=== PATIENT | male | born 1985 | race Caucasian/White ===

== ENCOUNTER 2021-12-10 13:48 | Inpatient (IN) | payer OTHER ==
[~2021-12-10] VITALS: Ht 180.3 cm; Wt 107.3 kg
[~2021-12-10 13:48] MED LIST: methylPREDNISolone 4 MG TABLET. PO SCH
[2021-12-10] MEDS ORDERED: MORPHINE SULFATE 10 MG/ML VIAL. IVP ONE (14:15)
[2021-12-10 14:23] LABS: BASO # 0.1 x10^3/uL (0.0-0.2); BASO % 1 % (0-3); EOS # 0.3 x10^3/uL (0.0-0.7); EOS % 4 % (0-3); HEMATOCRIT 42.4 % (39.0-53.0); HEMOGLOBIN 14.4 g/dL (13.0-17.5); LYMPH # 2.5 x10^3/uL (1.0-4.8); LYMPH % 34 % (24-48); MEAN CORPUSCULAR HEMOGLOBIN 32 pg (25-35); MEAN CORPUSCULAR HGB CONC 34 g/dL (31-37); MEAN CORPUSCULAR VOLUME 93 fL (79-100); MONO # 0.5 x10^3/uL (0.0-1.1); MONO % 7 % (0-9); NEUT # 3.9 x10^3/uL (1.8-7.7); NEUT % 54 % (31-73); PLATELET COUNT 212 x10^3/uL (140-400); RED BLOOD COUNT 4.58 x10^6/uL (4.30-5.70); RED CELL DISTRIBUTION WIDTH 12.8 % (11.5-14.5); WHITE BLOOD COUNT 7.3 x10^3/uL (4.0-11.0)
[2021-12-10] MEDS ORDERED: methylPREDNISolone SOD SUCC PF 125 MG/2 ML VIAL. IV ONE (14:30)
[2021-12-10] MEDS ORDERED: ORPHENADRINE CITRATE 60 MG/2 ML VIAL. IM ONE (14:30)
[2021-12-10] MEDS ORDERED: KETOROLAC 30 MG/ML VIAL. IVP ONE (14:30)
[2021-12-10] MEDS ORDERED: LIDOCAINE (700MG/PATCH) PATCH. TD ONE (14:30)
[2021-12-10 14:31] LABS: CALCIUM 8.4 mg/dL (8.5-10.1); CREATININE 0.9 mg/dL (0.7-1.3); POTASSIUM 4.2 mmol/L (3.5-5.1)
[2021-12-10 14:37] LABS: TOTAL BILIRUBIN 0.5 mg/dL (0.2-1.0); TOTAL PROTEIN 7.9 g/dL (6.4-8.2)
--- NOTE | 2021-12-10 14:40 | PHYS DOC ---
Past Medical History Past Surgical History: Other Additional Past Surgical Histo: PLATE IN LEFT HAND General Adult EDM: Chief Complaint: PAIN CONTROL HPI: HPI: Patient is a 36 year old male who presents with back for lower back pain after he was seen at [facility] yesterday. He has had lower back pain that radiates sharp shooting down the right leg and into the hip. He denies loss of bowel bladder, numbness or tingling, focal weakness, urinary retention, abdominal pain, nausea, vomiting, chest pain, fever, urinary symptoms, shortness of breath. He states that he is injured his back before and it feels like a spasm but usually he just takes ibuprofen and it gets better. He states that nothing is making it better. Yesterday when he was seen he was offered admission but he decided that since he was not and get an MRI that day and there was an anesthesiologist there to do any kind of a nerve block that he " was just can go home and be miserable." He was given prescriptions for prednisone, Flexeril, hydrocodone but states that he did not get any of them filled because " it would be worthless." Rating his pain a 10 out of 10. Review of Systems: Review of Systems: Constitutional: Denies fever or chills. [] Eyes: Denies change in visual acuity. [] HENT: Denies nasal congestion or sore throat. [] Respiratory: Denies cough or shortness of breath. [] Cardiovascular: Denies chest pain or edema. [] GI: Denies abdominal pain, nausea, vomiting, bloody stools or diarrhea. [] : Denies dysuria. [] Musculoskeletal: +lower back pain or denies joint pain. + Sharp shooting pain going down the right leg and into the hip [] Integument: Denies rash. [] Neurologic: Denies headache, focal weakness or + numbness tingling down the right thigh and leg sensory changes. [] Endocrine: Denies polyuria or polydipsia. [] Lymphatic: Denies swollen glands. [] Psychiatric: Denies depression or anxiety. [] Heart Score: C/O Chest Pain: No Current Medications: Current Medications Medications (Trade) Dose Ordered Sig/Gomez Start Time Stop Time Status Last Admin Dose Admin Ketorolac Tromethamine (Toradol 30mg Vial) 30 mg 1X ONCE 12/10/21 14:30 2/27/22 14:31 Lidocaine (Lidoderm) 1 patch 1X ONCE 12/10/21 14:30 12/10/21 14:31 UNV Methylprednisolone Sodium Succinate (SOLU-Medrol 125MG VIAL) 125 mg 1X ONCE 12/10/21 14:30 12/10/21 14:31 Morphine Sulfate (Morphine Sulfate) 5 mg 1X ONCE 12/10/21 14:15 12/10/21 14:16 DC Orphenadrine Citrate (Norflex) 60 mg 1X ONCE 12/10/21 14:30 12/10/21 14:31 UNV Allergies: Allergies: Allergies Coded Allergies Type Severity Reaction Last Updated Verified No Known Drug Allergies 12/10/21 No Physical Exam: PE: Constitutional: Well developed, well nourished, no acute distress, non-toxic appearance. [] HENT: Normocephalic, atraumatic, bilateral external ears normal, oropharynx moist, no oral exudates, nose normal. [] Eyes: PERRLA, EOMI, conjunctiva normal, no discharge. [] Neck: Normal range of motion, no tenderness, supple, no stridor. [] Cardiovascular:Heart rate regular rhythm, no murmur [] Lungs & Thorax: Bilateral breath sounds clear to auscultation [] Abdomen: Bowel sounds normal, soft, no tenderness, no masses, no pulsatile masses. [] Skin: Warm, dry, no erythema, no rash. [] Back: No tenderness, no CVA tenderness. [] Extremities: No tenderness, no cyanosis, no clubbing, right leg limited ROM but intact, no edema. [] Neurologic: Alert and oriented X 3, normal motor function, normal sensory function, no focal deficits noted. Some numbness to the thigh and the right [] Psychologic: Affect normal, judgement normal, mood normal. [] Current Patient Data: Vital Signs: Vital Signs Date Time Temp Pulse Resp B/P (MAP) Pulse Ox O2 Delivery O2 Flow Rate FiO2 12/10/21 13:59 97.2 84 16 139/94 (109) 98 Room Air 97.2 EKG: EKG: [] Radiology/Procedures: Radiology/Procedures: [] Course & Med Decision Making: Course & Med Decision Making Pertinent Labs and Imaging studies reviewed. (See chart for details) See HPI. Alert and oriented x4. Ambulatory with an unsteady gait and using a crutch to help walk due to the pain. He does not have any focal weakness in the leg is just painful to move the leg because of pain that occurs in his lower back and down into the leg itself. There is no extremity edema. No tenderness to the leg. Some tenderness to the right lower back with palpation. No saddle anesthesia. No loss of bowel bladder. He is urinating appropriately. Yesterday the [facility] report states that there is no blood in his urine. His CT lumbar and abdomen pelvis from yesterday at [facility] stated no acute findings. Here in the ED patient is getting morphine 5 mg IV, lidocaine patch, Norflex IM, Toradol IV, Solu-Medrol 125 IV. Patient to be admitted to the hospitalist. I did speak to Minerva nurse practitioner for Dr. Lopez who states to admit the patient and they can do a MRI in the morning. [] Keya Disclaimer: Keya Disclaimer: This electronic medical record was generated, in whole or in part, using a voice recognition dictation system. Departure Departure Impression: Primary Impression: Intractable low back pain Disposition: ADMITTED INPATIENT Admitting Physician: MAGDIEL Condition: STABLE MAURICIO URENA APRN Dec 10, 2021 14:40
[2021-12-10] MEDS ORDERED: MORPHINE SULFATE 4 MG/ML INJ. IVP PRN (14:45)
[2021-12-10] MEDS ORDERED: PROCHLORPERAZINE 10 MG/2 ML VIAL. IVP PRN (15:00)
[2021-12-10] MEDS ORDERED: ZOLPIDEM 5 MG TABLET. PO PRN (15:00)
[2021-12-10] MEDS ORDERED: MORPHINE SULFATE 2 MG/ML INJ. IV PRN ×2 (15:00)
[2021-12-10] MEDS ORDERED: ONDANSETRON PF 4 MG/2 ML VIAL. IVP PRN (15:00)
[2021-12-10] MEDS ORDERED: CALCIUM CARBONATE 500 MG TAB.CHEW PO PRN (15:00)
[2021-12-10] MEDS ORDERED: ELECTROLYTE (NON-ICU) PROTOCOL. MC PRN (15:00)
[2021-12-10] MEDS ORDERED: ACETAMINOPHEN 325 MG TABLET. PO PRN (15:00)
[2021-12-10 17:43] VITALS: BP 118/70
--- NOTE | 2021-12-10 18:51 | PDOC1 ---
History and Physical Date of Service: DOS: DATE: 12/10/21 TIME: 18:51 Chief Complaint: Chief Complain: back pain History of Present Illness: HPI: Patient is a 36-year-old male presented the emergency room today for ongoing lower back pain. Patient was seen at [facility] yesterday for the same complaint. Patient says that his right lower back pain that shooting down the back of his right leg. Denies any sort of other symptoms including pain to the left leg; no bowel or bladder incontinence. Overall really denying any other symptoms. Has had back injury in the past but he really would not specify to me. At [facility] yesterday was offered admission but was told it would be few days for get MRI and this upset him and he left. He was given prescriptions for prednisone Flexeril and hydrocodone but never filled them because he said they would not help anyways. Decided to present here today then. In emergency room lab work all normal. CT scan [place] reviewed which overall normal. Patient still quite a bit of pain admit. Neurosurgery discussed with the ER team recommending MRI in the morning. Past Medical/Surgical History: PMH/PSH: Patient denies any past medical history Allergies: Allergies: Coded Allergies: No Known Drug Allergies (Unverified , 12/10/21) Family History: Family History: None none Social History: Social History: social alcohol use; denies tobacco drug use Current Medications: Current Medications Current Medications Morphine Sulfate (Morphine Sulfate) 5 mg 1X ONCE IVP Last administered on 12/10/21at 14:36; Start 12/10/21 at 14:15; Stop 12/10/21 at 14:16; Status DC Methylprednisolone Sodium Succinate (SOLU-Medrol 125MG VIAL) 125 mg 1X ONCE IV Last administered on 12/10/21at 14:34; Start 12/10/21 at 14:30; Stop 12/10/21 at 14:31; Status DC Ketorolac Tromethamine (Toradol 30mg Vial) 30 mg 1X ONCE IVP Last administered on 12/10/21at 14:37; Start 12/10/21 at 14:30; Stop 12/10/21 at 14:31; Status DC Orphenadrine Citrate (Norflex) 60 mg 1X ONCE IM Last administered on 12/10/21at 14:32; Start 12/10/21 at 14:30; Stop 12/10/21 at 14:31; Status DC Lidocaine (Lidoderm) 1 patch 1X ONCE TD Last administered on 12/10/21at 14:40; Start 12/10/21 at 14:30; Stop 12/10/21 at 14:31; Status DC Morphine Sulfate (Morphine Sulfate) 4 mg PRN Q2HR PRN IVP PAIN; Start 12/10/21 at 14:45; Stop 12/11/21 at 14:44 Ondansetron HCl (Zofran) 4 mg PRN Q6HRS PRN IVP NAUSEA/VOMITING; Start 12/10/21 at 15:00 Prochlorperazine Edisylate (Compazine) 10 mg PRN Q6HRS PRN IVP NAUSEA/VOMITING 2ND CHOICE; Start 12/10/21 at 15:00 Calcium Carbonate/ Glycine (Tums) 500 mg PRN Q3HRS PRN PO UPSET STOMACH; Start 12/10/21 at 15:00 Zolpidem Tartrate (Ambien) 5 mg PRN QHS PRN PO INSOMNIA, MAY REPEAT IN 1HR; Start 12/10/21 at 15:00 Info (Non-Icu Electrolyte Protocol) 1 ea PRN DAILY PRN MC SEE COMMENTS; Start 12/10/21 at 15:00 Morphine Sulfate (Morphine Sulfate) 1 mg PRN Q1HR PRN IV PAIN; Start 12/10/21 at 15:00 Morphine Sulfate (Morphine Sulfate) 2 mg PRN Q1HR PRN IV PAIN; Start 12/10/21 at 15:00 Acetaminophen (Tylenol) 650 mg PRN Q6HRS PRN PO Headaches, Temp > 101.5F; Start 12/10/21 at 15:00 Senna/Docusate Sodium (Senna Plus) 1 tab BID PO ; Start 12/10/21 at 21:00 Heparin Sodium (Porcine) (Heparin Sodium) 5,000 unit Q8HRS SQ ; Start 12/10/21 at 22:00 Active Scripts Active Reported No Known Medications Prior To Admisstion (Info) Each 1 Each MC 1X ROS: Review of Systems Review of System Unless noted in HPI 14 point review of systems was negative Physical Exam: Vital Signs: Vital Signs Date Time Temp Pulse Resp B/P (MAP) Pulse Ox O2 Delivery O2 Flow Rate FiO2 12/10/21 17:43 98.2 57 18 118/70 (86) 98 Room Air 98.2 Physcial Exam: GEN: Distress due to pain alert and oriented HEENT: Normal cephalic, atraumatic, external auditory canals are patent EYES: Extraocular muscles are intact, pupil are equally round and reactive to light and accommodation MUSCULOSKELETAL: Well developed , well nourished, good range of motion ENDOCRINE: No thyromegaly was palpated LYMPHATICS: No cervical chain or axillary nodes were noted HEMATOPOIETIC: No bruising NECK: Supple, no JVD, no thyromegaly was noted LUNGS: Clear to auscultation in all lung [place] without rhonchi or wheezing HEART: RRR, S!, S2 present. Peripheral pulses intact, no obvious murmurs noted ABDOMEN: Soft, nontender. Positive bowel sounds, no organomegaly, normal bowel sounds EXTREMITIES: Without clubbing, cyanosis, or edema. Pedal pulses intact. NEUROLOGIC: Pain with straight leg raise on right side PSYCHIATRIC: Normal affect, normal mood. Stable SKIN: No ulcerations or rashes, good skin turgor, no jaundice VASCULAR: Good capillary refill, neurovascular bundle appears to be intact Labs: Labs: Laboratory Tests Test 12/10/21 14:15 White Blood Count 7.3 x10^3/uL (4.0-11.0) Red Blood Count 4.58 x10^6/uL (4.30-5.70) Hemoglobin 14.4 g/dL (13.0-17.5) Hematocrit 42.4 % (39.0-53.0) Mean Corpuscular Volume 93 fL (79-100) Mean Corpuscular Hemoglobin 32 pg (25-35) Mean Corpuscular Hemoglobin Concent 34 g/dL (31-37) Red Cell Distribution Width 12.8 % (11.5-14.5) Platelet Count 212 x10^3/uL (140-400) Neutrophils (%) (Auto) 54 % (31-73) Lymphocytes (%) (Auto) 34 % (24-48) Monocytes (%) (Auto) 7 % (0-9) Eosinophils (%) (Auto) 4 % (0-3) Basophils (%) (Auto) 1 % (0-3) Neutrophils # (Auto) 3.9 x10^3/uL (1.8-7.7) Lymphocytes # (Auto) 2.5 x10^3/uL (1.0-4.8) Monocytes # (Auto) 0.5 x10^3/uL (0.0-1.1) Eosinophils # (Auto) 0.3 x10^3/uL (0.0-0.7) Basophils # (Auto) 0.1 x10^3/uL (0.0-0.2) Sodium Level 143 mmol/L (136-145) Potassium Level 4.2 mmol/L (3.5-5.1) Chloride Level 105 mmol/L (98-107) Carbon Dioxide Level 25 mmol/L (21-32) Anion Gap 13 (6-14) Blood Urea Nitrogen 12 mg/dL (8-26) Creatinine 0.9 mg/dL (0.7-1.3) Estimated GFR (Cockcroft-Gault) 95.0 BUN/Creatinine Ratio 13 (6-20) Glucose Level 97 mg/dL (70-99) Calcium Level 8.4 mg/dL (8.5-10.1) Total Bilirubin 0.5 mg/dL (0.2-1.0) Aspartate Amino Transf (AST/SGOT) 12 U/L (15-37) Alanine Aminotransferase (ALT/SGPT) 36 U/L (16-63) Alkaline Phosphatase 50 U/L (46-116) Total Protein 7.9 g/dL (6.4-8.2) Albumin 4.0 g/dL (3.4-5.0) Albumin/Globulin Ratio 1.0 (1.0-1.7) Laboratory Tests Test 12/10/21 14:15 White Blood Count 7.3 x10^3/uL (4.0-11.0) Red Blood Count 4.58 x10^6/uL (4.30-5.70) Hemoglobin 14.4 g/dL (13.0-17.5) Hematocrit 42.4 % (39.0-53.0) Mean Corpuscular Volume 93 fL (79-100) Mean Corpuscular Hemoglobin 32 pg (25-35) Mean Corpuscular Hemoglobin Concent 34 g/dL (31-37) Red Cell Distribution Width 12.8 % (11.5-14.5) Platelet Count 212 x10^3/uL (140-400) Neutrophils (%) (Auto) 54 % (31-73) Lymphocytes (%) (Auto) 34 % (24-48) Monocytes (%) (Auto) 7 % (0-9) Eosinophils (%) (Auto) 4 % (0-3) Basophils (%) (Auto) 1 % (0-3) Neutrophils # (Auto) 3.9 x10^3/uL (1.8-7.7) Lymphocytes # (Auto) 2.5 x10^3/uL (1.0-4.8) Monocytes # (Auto) 0.5 x10^3/uL (0.0-1.1) Eosinophils # (Auto) 0.3 x10^3/uL (0.0-0.7) Basophils # (Auto) 0.1 x10^3/uL (0.0-0.2) Sodium Level 143 mmol/L (136-145) Potassium Level 4.2 mmol/L (3.5-5.1) Chloride Level 105 mmol/L (98-107) Carbon Dioxide Level 25 mmol/L (21-32) Anion Gap 13 (6-14) Blood Urea Nitrogen 12 mg/dL (8-26) Creatinine 0.9 mg/dL (0.7-1.3) Estimated GFR (Cockcroft-Gault) 95.0 BUN/Creatinine Ratio 13 (6-20) Glucose Level 97 mg/dL (70-99) Calcium Level 8.4 mg/dL (8.5-10.1) Total Bilirubin 0.5 mg/dL (0.2-1.0) Aspartate Amino Transf (AST/SGOT) 12 U/L (15-37) Alanine Aminotransferase (ALT/SGPT) 36 U/L (16-63) Alkaline Phosphatase 50 U/L (46-116) Total Protein 7.9 g/dL (6.4-8.2) Albumin 4.0 g/dL (3.4-5.0) Albumin/Globulin Ratio 1.0 (1.0-1.7) Assessment/Plan Assessment/Plan Intractable lower back pain, sciatica -Presented with intractable lower back pain. Previously seen at [facility] yesterday negative work-up. Declined admission there -Presented today with similar symptoms. Unremarkable lab work -Neurosurgery consulted in emergency room recommending MRI -As needed pain control -No home meds to resume -PMR consult -PT OT -DVT prophylax -Regular diet Justifications for Admission Other Justification MARSHALL CALVO MD Dec 10, 2021 18:51
[2021-12-10 19:00] VITALS: BP 108/54
[2021-12-10] MEDS: HEPARIN for SUB-Q USE 5,000 UNIT/ML VIAL. SQ SCH (20:41)
[2021-12-10] MEDS: SENNOSIDES/DOCUSATE 8.6/50MG TABLET. PO SCH (20:41)
[2021-12-10 23:21] VITALS: BP 103/51
[2021-12-11] MEDS ORDERED: methylPREDNISolone SOD SUCC PF 40 MG/ML VIAL. IV ONE ×2 (05:00→08:00)
[2021-12-11] MEDS: HEPARIN for SUB-Q USE 5,000 UNIT/ML VIAL. SQ SCH ×3 (05:02→20:35)
[2021-12-11 07:00] VITALS: BP 113/60
--- NOTE | 2021-12-11 07:20 | NUR ---
Notified Dr. Lopez's answering service about routine consult and left VM for Dr. Torres's answering service about consult.
[2021-12-11] MEDS: SENNOSIDES/DOCUSATE 8.6/50MG TABLET. PO SCH ×2 (08:17→20:35)
--- NOTE | 2021-12-11 10:41 | CONS ---
DATE OF CONSULTATION: 12/11/2021 ATTENDING PHYSICIAN: Chas Gaines MD REASON FOR CONSULTATION: The patient was seen at the request of Dr. Gaines for rehab evaluation. HISTORY OF PRESENT ILLNESS: This is a 36-year-old right-handed male in the [employer], but right now, a desk kind of job, lives with his family and 5 children. He had some back pain on and off before, it usually gets better taking some Advil. In a few days, the patient started having lower back pain on the evening of 12/08/2021. 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 The patient was seen in the Emergency Room with lower back pain with radiation to his groin and right lower extremity. On 12/09/2021, he had CT scan of lumbar spine and abdomen, which failed to reveal any acute abnormalities. He was given prednisone and narcotic pain medication, but the patient did not fill up the prescription. He came to and was admitted through the Emergency Room on 12/10/2021. The patient is scheduled to have an MRI scan of the lumbar vertebrae. Right now, he is getting IV steroids. He admits some less stiffness of his lower back this morning. ALLERGIES: The patient is not known allergic to any medication. PHYSICAL EXAMINATION: NEUROLOGIC: Today revealed a young male patient, in no acute distress. He had painful limited movements of the lumbar spine without any paraspinal muscle spasm and localized tenderness to palpation over sacroiliac joint area, mainly on the right side. Straight leg raising test is negative bilaterally. He had normal neurological examination of his upper and lower extremities. He had painful range of motion of both lower extremity joints. He is independent with bed mobility and transfers and while up walking, he is walking with an antalgic gait, slight limping on his right low foot. His skin is intact at this time. ASSESSMENT: A young male with lumbar sprain to rule out associated herniated nucleus pulposus, no clinical evidence of lumbar radiculopathy. RECOMMENDATIONS: Agree with the plan of care, to consider injecting painful right sacroiliac joint area and also lumbar corset for use while up. I have reviewed with him a program of physical modalities and stretching exercises and proper body mechanics. Dr. Gaines, I appreciate asking me to participate in the care of this interesting patient. Hopefully, home in the next day or so when he is more comfortable. MEDINA/CHRISTIN DR: Ayden TID: [id number]
[2021-12-11 11:00] VITALS: BP_SYST 113; BP_SYST 119; BP_DIAS 60; BP_DIAS 66
--- NOTE | 2021-12-11 11:20 | NUR ---
SW following. Discussed with RN, pt from home, room air, regular diet. Dr. Lopez and Dr. Torres following. PT/OT ordered. OT recommended home independent. RN advised no SW needs at this time. SW will continue to follow.
--- NOTE | 2021-12-11 11:26 | PDOC ---
[employer] PROGRESS NOTE Date of Service DOS: DATE: 12/11/21 TIME: 11:24 Chief Complaint Chief Complaint Intractable lower back pain, sciatica -Presented with intractable lower back pain. Previously seen at [facility] yesterday negative work-up. Declined admission there -Presented today with similar symptoms. Unremarkable lab work -Neurosurgery consulted in emergency room recommending MRI, pending -As needed pain control -No home meds to resume -PMR consult -PT OT -DVT prophylax -Regular diet History of Present Illness History of Present Illness 12/11 Patient evaluate examined at bedside. He was working with therapy when seen. Pain a little bit improved. MRI ordered. Discussed with Dr. Torres at bedside. As needed pain control. Possible injection Vitals/I&O Vitals/I&O: Vital Signs Date Time Temp Pulse Resp B/P (MAP) Pulse Ox O2 Delivery O2 Flow Rate FiO2 12/11/21 08:00 Room Air 12/11/21 07:00 97.9 59 18 113/60 (77) 97 97.9 I & O 12/10/21 12/10/21 12/11/21 15:00 23:00 07:00 Intake Total 120 ml 30 ml Balance 120 ml 30 ml Physical Exam General: Alert, Oriented X3, Cooperative Heart: Regular rate Lungs: Clear, Wheezing, Crackles Abdomen: Normal bowel sounds, Soft, No tenderness Extremities: No edema, Normal pulses Skin: No significant lesion Labs Labs: Laboratory Tests Test 12/10/21 14:15 White Blood Count 7.3 x10^3/uL (4.0-11.0) Red Blood Count 4.58 x10^6/uL (4.30-5.70) Hemoglobin 14.4 g/dL (13.0-17.5) Hematocrit 42.4 % (39.0-53.0) Mean Corpuscular Volume 93 fL (79-100) Mean Corpuscular Hemoglobin 32 pg (25-35) Mean Corpuscular Hemoglobin Concent 34 g/dL (31-37) Red Cell Distribution Width 12.8 % (11.5-14.5) Platelet Count 212 x10^3/uL (140-400) Neutrophils (%) (Auto) 54 % (31-73) Lymphocytes (%) (Auto) 34 % (24-48) Monocytes (%) (Auto) 7 % (0-9) Eosinophils (%) (Auto) 4 % (0-3) Basophils (%) (Auto) 1 % (0-3) Neutrophils # (Auto) 3.9 x10^3/uL (1.8-7.7) Lymphocytes # (Auto) 2.5 x10^3/uL (1.0-4.8) Monocytes # (Auto) 0.5 x10^3/uL (0.0-1.1) Eosinophils # (Auto) 0.3 x10^3/uL (0.0-0.7) Basophils # (Auto) 0.1 x10^3/uL (0.0-0.2) Sodium Level 143 mmol/L (136-145) Potassium Level 4.2 mmol/L (3.5-5.1) Chloride Level 105 mmol/L (98-107) Carbon Dioxide Level 25 mmol/L (21-32) Anion Gap 13 (6-14) Blood Urea Nitrogen 12 mg/dL (8-26) Creatinine 0.9 mg/dL (0.7-1.3) Estimated GFR (Cockcroft-Gault) 95.0 BUN/Creatinine Ratio 13 (6-20) Glucose Level 97 mg/dL (70-99) Calcium Level 8.4 mg/dL (8.5-10.1) Total Bilirubin 0.5 mg/dL (0.2-1.0) Aspartate Amino Transf (AST/SGOT) 12 U/L (15-37) Alanine Aminotransferase (ALT/SGPT) 36 U/L (16-63) Alkaline Phosphatase 50 U/L (46-116) Total Protein 7.9 g/dL (6.4-8.2) Albumin 4.0 g/dL (3.4-5.0) Albumin/Globulin Ratio 1.0 (1.0-1.7) Assessment and Plan Assessmemt and Plan Problems Medical Problems: (1) Intractable low back pain Status: Acute Comment Review of Relevant I have reviewed the following items kimberly (where applicable) has been applied. Medications: Current Medications Medications (Trade) Dose Ordered Sig/Gomez Route PRN Reason Start Time Stop Time Status Last Admin Dose Admin Morphine Sulfate (Morphine Sulfate) 5 mg 1X ONCE IVP 12/10/21 14:15 12/10/21 14:16 DC 12/10/21 14:36 Methylprednisolone Sodium Succinate (SOLU-Medrol 125MG VIAL) 125 mg 1X ONCE IV 12/10/21 14:30 12/10/21 14:31 DC 12/10/21 14:34 Ketorolac Tromethamine (Toradol 30mg Vial) 30 mg 1X ONCE IVP 12/10/21 14:30 12/10/21 14:31 DC 12/10/21 14:37 Orphenadrine Citrate (Norflex) 60 mg 1X ONCE IM 12/10/21 14:30 12/10/21 14:31 DC 12/10/21 14:32 Lidocaine (Lidoderm) 1 patch 1X ONCE TD 12/10/21 14:30 12/10/21 14:31 DC 12/10/21 14:40 Morphine Sulfate (Morphine Sulfate) 2 mg PRN Q1HR PRN IV PAIN 12/10/21 15:00 12/10/21 23:22 Methylprednisolone Sodium Succinate (SOLU-Medrol 40MG VIAL) 80 mg 1X ONCE IV 12/11/21 08:00 12/11/21 08:01 DC 12/11/21 08:17 Justifications for Admission Other Justification MARSHALL CALVO MD Dec 11, 2021 11:26
--- NOTE | 2021-12-11 15:12 | PDOC ---
Provider Note Date of Service: DATE: 12/11/21 TIME: 15:05 Provider Note Patient seen and examined 1245 consulted for back and leg pain c/o low back pain and pain radiating to both legs increasing back and leg pain since Saturday but better today normal neuro exam lumbar MRI pending will follow Justifications for Admission Other Justification ELVIA MOREAU MD Dec 11, 2021 15:12
--- NOTE | 2021-12-11 16:19 | RAD ---
MRI lumbar spine without contrast HISTORY: Lumbar radiculopathy. COMPARISON: No priors FINDINGS: Lumbar vertebral body height and alignment are intact. Mild discogenic bony edema at L5-S1 from degenerative disc disease. Conus terminates at the upper lumbar vertebral level. Paraspinal tiss ues are unremarkable. Lumbar disc disease described below. L1-L2: Normal. L2-L3: Normal. L3-L4: Normal. L4-L5: Slight posterior disc height loss. Very mild facet hypertrophy. No sizable disc bulge or herni ation. No spinal canal or neural foraminal stenosis. L5-S1: Disc desiccation, posterior disc height loss, mild posterior and lateral disc bulge along with a posterior disc annulus tear with a very shallow left paracentral focal disc protrusion, this contr ibutes to mild left lateral recess stenosis about the descending left S1 nerve roots. No spinal canal stenosis. Neural foramina patent. IMPRESSION: Lower lumbar disc disease. This is most notable at L5-S1 with mild narrowing of the left lateral recess. No spinal canal stenosis. See above. Electronically signed by: Erick Thompson MD (12/11/2021 4:17 PM) [facility]
[2021-12-11 19:00] VITALS: BP 109/51
[2021-12-12] MEDS: HEPARIN for SUB-Q USE 5,000 UNIT/ML VIAL. SQ SCH ×2 (05:40→14:00)
[2021-12-12 07:00] VITALS: BP 110/64
[2021-12-12] MEDS: methylPREDNISolone 4 MG TABLET. PO SCH ×2 (07:42→13:51)
[2021-12-12] MEDS: SENNOSIDES/DOCUSATE 8.6/50MG TABLET. PO SCH (07:43)
[2021-12-12] MEDS ORDERED: methylPREDNISolone 4 MG TABLET. PO SCH (09:00)
[2021-12-12 11:00] VITALS: BP 122/66
--- NOTE | 2021-12-12 12:13 | PDOC ---
PROGRESS NOTES Date of Service DATE: 12/12/21 TIME: 12:09 Subjective Subjective He admits continued back pain but getting up with his crutch. Objective Objective Vital Signs Date Time Temp Pulse Resp B/P (MAP) Pulse Ox O2 Delivery O2 Flow Rate FiO2 12/12/21 11:00 98.3 61 20 122/66 (84) 98 Room Air 98.3 Intake and Output 12/12/21 07:00 Intake Total 540 ml Balance 540 ml Intake Oral 540 ml # Voids 2 Physical Exam Physical Exam He is lying on his left side and seems to be comfortable but continues with painfully limited lumbar spine ROM with tenderness to palpation over sacroiliac joints bilaterally,right>left. No change with his neurological status. MRI scan revealed mild DDD and facet DJD changes at L5-S1 and L4-L5 level Assessment Assessment Problems Medical Problems: (1) Intractable low back pain Status: Acute Plan Plan of [place] when medically stable with out patient follow up and to consider trigger point injections or lumbar epidural steroid injections if pain persists. Comment Review of Relevant I have reviewed the following items kimberly (where applicable) has been applied. Labs Laboratory Tests Test 12/10/21 14:15 White Blood Count 7.3 x10^3/uL (4.0-11.0) Red Blood Count 4.58 x10^6/uL (4.30-5.70) Hemoglobin 14.4 g/dL (13.0-17.5) Hematocrit 42.4 % (39.0-53.0) Mean Corpuscular Volume 93 fL (79-100) Mean Corpuscular Hemoglobin 32 pg (25-35) Mean Corpuscular Hemoglobin Concent 34 g/dL (31-37) Red Cell Distribution Width 12.8 % (11.5-14.5) Platelet Count 212 x10^3/uL (140-400) Neutrophils (%) (Auto) 54 % (31-73) Lymphocytes (%) (Auto) 34 % (24-48) Monocytes (%) (Auto) 7 % (0-9) Eosinophils (%) (Auto) 4 % (0-3) Basophils (%) (Auto) 1 % (0-3) Neutrophils # (Auto) 3.9 x10^3/uL (1.8-7.7) Lymphocytes # (Auto) 2.5 x10^3/uL (1.0-4.8) Monocytes # (Auto) 0.5 x10^3/uL (0.0-1.1) Eosinophils # (Auto) 0.3 x10^3/uL (0.0-0.7) Basophils # (Auto) 0.1 x10^3/uL (0.0-0.2) Sodium Level 143 mmol/L (136-145) Potassium Level 4.2 mmol/L (3.5-5.1) Chloride Level 105 mmol/L (98-107) Carbon Dioxide Level 25 mmol/L (21-32) Anion Gap 13 (6-14) Blood Urea Nitrogen 12 mg/dL (8-26) Creatinine 0.9 mg/dL (0.7-1.3) Estimated GFR (Cockcroft-Gault) 95.0 BUN/Creatinine Ratio 13 (6-20) Glucose Level 97 mg/dL (70-99) Calcium Level 8.4 mg/dL (8.5-10.1) Total Bilirubin 0.5 mg/dL (0.2-1.0) Aspartate Amino Transf (AST/SGOT) 12 U/L (15-37) Alanine Aminotransferase (ALT/SGPT) 36 U/L (16-63) Alkaline Phosphatase 50 U/L (46-116) Total Protein 7.9 g/dL (6.4-8.2) Albumin 4.0 g/dL (3.4-5.0) Albumin/Globulin Ratio 1.0 (1.0-1.7) Medications Current Medications Morphine Sulfate (Morphine Sulfate) 5 mg 1X ONCE IVP Last administered on at 14:36; Start 12/10/21 at 14:15; Stop 12/10/21 at 14:16; Status DC Methylprednisolone Sodium Succinate (SOLU-Medrol 125MG VIAL) 125 mg 1X ONCE IV Last administered on 12/10/21at 14:34; Start 12/10/21 at 14:30; Stop 12/10/21 at 14:31; Status DC Ketorolac Tromethamine (Toradol 30mg Vial) 30 mg 1X ONCE IVP Last administered on 12/10/21at 14:37; Start 12/10/21 at 14:30; Stop 12/10/21 at 14:31; Status DC Orphenadrine Citrate (Norflex) 60 mg 1X ONCE IM Last administered on 12/10/21at 14:32; Start 12/10/21 at 14:30; Stop 12/10/21 at 14:31; Status DC Lidocaine (Lidoderm) 1 patch 1X ONCE TD Last administered on 12/10/21at 14:40; Start 12/10/21 at 14:30; Stop 12/10/21 at 14:31; Status DC Morphine Sulfate (Morphine Sulfate) 4 mg PRN Q2HR PRN IVP PAIN; Start 12/10/21 at 14:45; Stop 12/11/21 at 14:44; Status DC Ondansetron HCl (Zofran) 4 mg PRN Q6HRS PRN IVP NAUSEA/VOMITING; Start 12/10/21 at 15:00 Prochlorperazine Edisylate (Compazine) 10 mg PRN Q6HRS PRN IVP NAUSEA/VOMITING 2ND CHOICE; Start 12/10/21 at 15:00 Calcium Carbonate/ Glycine (Tums) 500 mg PRN Q3HRS PRN PO UPSET STOMACH; Start 12/10/21 at 15:00 Zolpidem Tartrate (Ambien) 5 mg PRN QHS PRN PO INSOMNIA, MAY REPEAT IN 1HR; Start 12/10/21 at 15:00 Info (Non-Icu Electrolyte Protocol) 1 ea PRN DAILY PRN MC SEE COMMENTS; Start 12/10/21 at 15:00 Morphine Sulfate (Morphine Sulfate) 1 mg PRN Q1HR PRN IV PAIN; Start 12/10/21 at 15:00 Morphine Sulfate (Morphine Sulfate) 2 mg PRN Q1HR PRN IV PAIN Last administered on 12/10/21at 23:22; Start 12/10/21 at 15:00 Acetaminophen (Tylenol) 650 mg PRN Q6HRS PRN PO Headaches, Temp > 101.5F Last administered on 12/11/21at 20:04; Start 12/10/21 at 15:00 Senna/Docusate Sodium (Senna Plus) 1 tab BID PO ; Start 12/10/21 at 21:00 Heparin Sodium (Porcine) (Heparin Sodium) 5,000 unit Q8HRS SQ ; Start 12/10/21 at 22:00 Methylprednisolone Sodium Succinate (SOLU-Medrol 40MG VIAL) 80 mg 1X ONCE IV ; Start 12/11/21 at 05:00; Stop 12/11/21 at 05:01; Status Cancel Methylprednisolone Sodium Succinate (SOLU-Medrol 40MG VIAL) 80 mg 1X ONCE IV Last administered on 12/11/21at 08:17; Start 12/11/21 at 08:00; Stop 12/11/21 at 08:01; Status DC Methylprednisolone (Medrol) 8 mg BID PO Last administered on 12/12/21at 07:42; Start 12/12/21 at 09:00; Stop 12/12/21 at 21:01 Methylprednisolone (Medrol) 4 mg BIDPCLD PO Last administered on 12/12/21at 07:42; Start 12/12/21 at 08:30; Stop 12/12/21 at 12:31 Methylprednisolone (Medrol) 4 mg TIDPC PO ; Start 12/13/21 at 08:30; Stop 12/13/21 at 17:31 Methylprednisolone (Medrol) 8 mg QHS PO ; Start 12/13/21 at 21:00; Stop 12/13/21 at 21:01 Methylprednisolone (Medrol) 4 mg QIDAFTMEAL PO ; Start 11/16/21 at 09:00; Stop 12/11/21 at 10:37; Status DC Methylprednisolone (Medrol) 4 mg TID PO ; Start 12/15/21 at 09:00; Stop 12/15/21 at 21:01 Methylprednisolone (Medrol) 4 mg BID PO ; Start 12/16/21 at 09:00; Stop 12/16/21 at 21:01 Methylprednisolone (Medrol) 4 mg DAILY PO ; Start 12/17/21 at 09:00; Stop 12/17/21 at 09:01 Methylprednisolone (Medrol) 4 mg QID PO ; Start 12/14/21 at 09:00; Stop 12/14/21 at 21:01 Active Scripts Active Reported No Known Medications Prior To Admisstion (Info) Each 1 Each MC 1X Vitals/I & O Vital Sign - Last 24 Hours 12/11/21 12/11/21 12/12/21 12/12/21 19:00 20:00 07:00 07:44 Temp 98.8 98.0 98.8 98.0 Pulse 64 59 Resp 20 20 B/P (MAP) 109/51 (70) 110/64 (79) Pulse Ox 95 95 O2 Delivery Room Air Room Air Room Air Room Air 12/12/21 11:00 Temp 98.3 98.3 Pulse 61 Resp 20 B/P (MAP) 122/66 (84) Pulse Ox 98 O2 Delivery Room Air Intake and Output 12/11/21 12/11/21 12/12/21 15:00 23:00 07:00 Intake Total 360 ml 180 ml Balance 360 ml 180 ml Justifications for Admission Other Justification LILY GANT MD Dec 12, 2021 12:13
[2021-12-12] MEDS ORDERED: HYDROcodone/APAP 5/325MG 1 TAB TABLET PO ONE (14:30)
[2021-12-12] MEDS ORDERED: METHOCARBAMOL 750 MG TABLET PO ONE (14:30)
--- NOTE | 2021-12-12 14:49 | PDOC ---
PROGRESS NOTES Date of Service DATE: 12/12/21 TIME: 14:46 Subjective Subjective patient seen at 1240 up ambulating in room back feels tight Objective Objective Vital Signs Date Time Temp Pulse Resp B/P (MAP) Pulse Ox O2 Delivery O2 Flow Rate FiO2 12/12/21 14:46 98 Room Air 12/12/21 11:00 98.3 61 20 122/66 (84) 98.3 Intake and Output 12/12/21 07:00 Intake Total 540 ml Balance 540 ml Intake Oral 540 ml # Voids 2 Physical Exam General: Alert, Oriented X3, Cooperative MUSCULOSKELETAL: Other (GILL) Assessment Assessment Problems Medical Problems: (1) Intractable low back pain Status: Acute Plan Plan of Care MRI reviewed with - mild posterior and lateral disc bulge along with a posterior disc annulus tear with a very shallow left paracentral focal disc protrusion, this contributes to mild left lateral recess stenosis about the descending left S1 nerve roots. No spinal canal stenosis. Neural foramina patent no surgery recommended recommend LESI vs PT he will follow up with his PCP and consider his option Comment Review of Relevant I have reviewed the following items kimberly (where applicable) has been applied. Medications Current Medications Morphine Sulfate (Morphine Sulfate) 5 mg 1X ONCE IVP Last administered on 12/10/21at 14:36; Start 12/10/21 at 14:15; Stop 12/10/21 at 14:16; Status DC Methylprednisolone Sodium Succinate (SOLU-Medrol 125MG VIAL) 125 mg 1X ONCE IV Last administered on 12/10/21at 14:34; Start 12/10/21 at 14:30; Stop 12/10/21 at 14:31; Status DC Ketorolac Tromethamine (Toradol 30mg Vial) 30 mg 1X ONCE IVP Last administered on 12/10/21at 14:37; Start 12/10/21 at 14:30; Stop 12/10/21 at 14:31; Status DC Orphenadrine Citrate (Norflex) 60 mg 1X ONCE IM Last administered on 12/10/21at 14:32; Start 12/10/21 at 14:30; Stop 12/10/21 at 14:31; Status DC Lidocaine (Lidoderm) 1 patch 1X ONCE TD Last administered on 12/10/21at 14:40; Start 12/10/21 at 14:30; Stop 12/10/21 at 14:31; Status DC Morphine Sulfate (Morphine Sulfate) 4 mg PRN Q2HR PRN IVP PAIN; Start 12/10/21 at 14:45; Stop 12/11/21 at 14:44; Status DC Ondansetron HCl (Zofran) 4 mg PRN Q6HRS PRN IVP NAUSEA/VOMITING; Start 12/10/21 at 15:00 Prochlorperazine Edisylate (Compazine) 10 mg PRN Q6HRS PRN IVP NAUSEA/VOMITING 2ND CHOICE; Start 12/10/21 at 15:00 Calcium Carbonate/ Glycine (Tums) 500 mg PRN Q3HRS PRN PO UPSET STOMACH; Start 12/10/21 at 15:00 Zolpidem Tartrate (Ambien) 5 mg PRN QHS PRN PO INSOMNIA, MAY REPEAT IN 1HR; Start 12/10/21 at 15:00 Info (Non-Icu Electrolyte Protocol) 1 ea PRN DAILY PRN MC SEE COMMENTS; Start 12/10/21 at 15:00 Morphine Sulfate (Morphine Sulfate) 1 mg PRN Q1HR PRN IV PAIN; Start 12/10/21 at 15:00 Morphine Sulfate (Morphine Sulfate) 2 mg PRN Q1HR PRN IV PAIN Last administered on 12/10/21at 23:22; Start 12/10/21 at 15:00 Acetaminophen (Tylenol) 650 mg PRN Q6HRS PRN PO Headaches, Temp > 101.5F Last administered on 12/11/21at 20:04; Start 12/10/21 at 15:00 Senna/Docusate Sodium (Senna Plus) 1 tab BID PO ; Start 12/10/21 at 21:00 Heparin Sodium (Porcine) (Heparin Sodium) 5,000 unit Q8HRS SQ ; Start 12/10/21 at 22:00 Methylprednisolone Sodium Succinate (SOLU-Medrol 40MG VIAL) 80 mg 1X ONCE IV ; Start 12/11/21 at 05:00; Stop 12/11/21 at 05:01; Status Cancel Methylprednisolone Sodium Succinate (SOLU-Medrol 40MG VIAL) 80 mg 1X ONCE IV Last administered on 12/11/21at 08:17; Start 12/11/21 at 08:00; Stop 12/11/21 at 08:01; Status DC Methylprednisolone (Medrol) 8 mg BID PO Last administered on 12/12/21at 07:42; Start 12/12/21 at 09:00; Stop 12/12/21 at 21:01 Methylprednisolone (Medrol) 4 mg BIDPCLD PO Last administered on 12/12/21at 13:51; Start 12/12/21 at 08:30; Stop 12/12/21 at 12:31; Status DC Methylprednisolone (Medrol) 4 mg TIDPC PO ; Start 12/13/21 at 08:30; Stop 12/13/21 at 17:31 Methylprednisolone (Medrol) 8 mg QHS PO ; Start 12/13/21 at 21:00; Stop 12/13/21 at 21:01 Methylprednisolone (Medrol) 4 mg QIDAFTMEAL PO ; Start 11/16/21 at 09:00; Stop 12/11/21 at 10:37; Status DC Methylprednisolone (Medrol) 4 mg TID PO ; Start 12/15/21 at 09:00; Stop 12/15/21 at 21:01 Methylprednisolone (Medrol) 4 mg BID PO ; Start 12/16/21 at 09:00; Stop 12/16/21 at 21:01 Methylprednisolone (Medrol) 4 mg DAILY PO ; Start 12/17/21 at 09:00; Stop 12/17/21 at 09:01 Methylprednisolone (Medrol) 4 mg QID PO ; Start 12/14/21 at 09:00; Stop 12/14/21 at 21:01 Acetaminophen/ Hydrocodone Bitart (Lortab 5/325) 1 tab 1X ONCE PO Last administered on 12/12/21at 14:46; Start 12/12/21 at 14:30; Stop 12/12/21 at 14:34; Status DC Methocarbamol (Robaxin) 750 mg 1X ONCE PO Last administered on 12/12/21at 14:46; Start 12/12/21 at 14:30; Stop 12/12/21 at 14:34; Status DC Active Scripts Active Reported No Known Medications Prior To Admisstion (Info) Each 1 Each 1X Vitals/I & O Vital Sign - Last 24 Hours 12/11/21 12/11/21 12/12/21 12/12/21 19:00 20:00 07:00 07:44 Temp 98.8 98.0 98.8 98.0 Pulse 64 59 Resp 20 20 B/P (MAP) 109/51 (70) 110/64 (79) Pulse Ox 95 95 O2 Delivery Room Air Room Air Room Air Room Air 12/12/21 12/12/21 11:00 14:46 Temp 98.3 98.3 Pulse 61 Resp 20 B/P (MAP) 122/66 (84) Pulse Ox 98 98 O2 Delivery Room Air Room Air Intake and Output 12/11/21 12/11/21 12/12/21 15:00 23:00 07:00 Intake Total 360 ml 180 ml Balance 360 ml 180 ml Justifications for Admission Other Justification [facility] Dec 12, 2021 14:49
[2021-12-12] MEDS ORDERED: METH-562 PO (15:47)
[2021-12-12] MEDS ORDERED: HYDR-2761 PO (15:47)
--- NOTE | 2021-12-12 15:49 | DISCH ---
DISCHARGE INSTRUCTIONS Condition on Discharge Condition on Discharge: Stable Activity After Discharge Activity Instructions for Disc: Activity as tolerated Lifting Instructions after Dis: Do not lift >10 pounds Driving Instructions after Dis: Do not drive today Weight Bearing Status after Di: As tolerated Diet after Discharge Diet after Discharge: Cardiac Follow-Up Follow up with: PCP within 2 weeks of discharge Follow Up With: Neurosurgery or pain clinic as needed SIDNEY GARCIA MD Dec 12, 2021 15:48
--- NOTE | 2021-12-12 17:51 | NUR ---
Discharge Note: IMAN ALBERTO Discharge instructions and discharge home medications reviewed with Patient and a copy given. All questions have been answered and understanding verbalized. The following instructions and handouts were given: follow up instructions, medication education Discontinued lines and drains: 20 gauge right AC, tip intact. patient tolerated well. Patient discharged to home with self care via .
[2021-12-13] MEDS ORDERED: methylPREDNISolone 4 MG TABLET. PO SCH ×2 (08:30→21:00)
[2021-12-14] MEDS ORDERED: methylPREDNISolone 4 MG TABLET. PO SCH (09:00)
[2021-12-15] MEDS ORDERED: methylPREDNISolone 4 MG TABLET. PO SCH (09:00)
[2021-12-16] MEDS ORDERED: methylPREDNISolone 4 MG TABLET. PO SCH (09:00)
[2021-12-17] MEDS ORDERED: methylPREDNISolone 4 MG TABLET. PO SCH (09:00)
== END 2021-12-12 17:20 | disposition home or self-care (01) | DRG 552 ==
LOC: ER 13:48 → 5 SOUTH 14:37
PROVIDERS: ADMIT Student in an Organized Health Care Education/Training Program; ATTEND Student in an Organized Health Care Education/Training Program
DX: S33.5XXA Sprain of ligaments of lumbar spine, initial encounter (principal); M54.40 Lumbago with sciatica, unspecified side
CPT/HCPCS: 36415; 72148; 80053; 85025; 96372; 96374; J1885; J2270; J2360; J2920; J2930; J7509; 97110-GP; 97116-GP; 99285-25; G0378